=== PATIENT | male | born 1975 | race Caucasian/White ===

== ENCOUNTER 2017-10-13 18:56 | Emergency (ER) | payer OTHER ==
[2017-10-13 19:35] LABS: KETONE, URINE AUTO RFX TRACE mg/dL (NEGATIVE); MUCUS, URINE RFX SMALL (NEGATIVE); NITRITE, URINE AUTO RFX NEGATIVE (NEGATIVE); RBC, URINE AUTO RFX TNTC /HPF (0-3); SPECIFIC GRAVITY UR AUTO RFX 1.017 (1.002-1.035); SQUAM EPITHELIAL CELL UR AURFX 0 /HPF (0-6)
[2017-10-13 20:26] LABS: LEUKOCYTE ESTERASE UR AUTO RFX TRACE (NEGATIVE); WBC, URINE AUTO RFX 52 /HPF (0-3)
[2017-10-13] MEDS: MORPHINE 4 MG/ML 1ML SYRINGE IV (21:37)
[2017-10-13] MEDS: ONDANSETRON 4MG/2ML VIAL (J2405) IV (21:37)
[2017-10-13 22:04] LABS: ANION GAP 6 MEQ/L (8-16); BLOOD UREA NITROGEN 20 MG/DL (7-18); CALCIUM LEVEL 9.1 MG/DL (8.5-10.1); CARBON DIOXIDE LEVEL 30 MEQ/L (21-32); CHLORIDE LEVEL 100 MEQ/L (98-107); CREATININE FOR GFR 0.87 MG/DL (0.70-1.30); GLOMERULAR FILTRATION RATE > 60.0 (>60); GLUCOSE, FASTING 305 MG/DL (70-105); POTASSIUM SERUM 3.8 MEQ/L (3.5-5.1); SODIUM LEVEL 136 MEQ/L (136-145)
[2017-10-13 22:09] LABS: BASO % 0.4 % (0.0-1.0); EOS # 0.1 10^3/uL (0.0-0.50); EOS % 0.8 % (0.0-3.0); HEMATOCRIT 45.6 % (42.0-52.0); HEMOGLOBIN 16.9 g/dl (14.0-18.0); IMMATURE GRANULOCYTE % 0.4 % (0-0); LYMPH # 2.6 10^3/uL (1.5-4.5); LYMPH % 24.3 % (24.0-44.0); MEAN CORPUSCULAR HEMOGLOBIN 30.6 pg (27.0-33.0); MEAN CORPUSCULAR VOLUME 82.5 fl (80.0-96.0); MONO # 0.7 10^3/uL (0.0-0.8); MONO % 6.2 % (0.0-5.0); NEUTROPHILS # 7.3 10^3/uL (1.8-7.7); NEUTROPHILS % 67.9 % (36.0-66.0); PLATELET COUNT, AUTOMATED 215 10^3/uL (150-450); RED BLOOD COUNT 5.53 10^6/uL (4.30-6.10); RED CELL DISTRIBUTION WIDTH 11.9 % (11.5-14.5); WHITE BLOOD COUNT 10.7 10^3/uL (4.0-10.0)
[2017-10-13 22:11] LABS: MEAN CORPUSCULAR HGB CONC 37.1 g/dl (32.0-36.5)
[2017-10-13] MEDS: TAMSULOSIN 0.4 MG CAP PO (23:35)
[2017-10-13] MEDS: CIPROFLOXACIN 500 MG TAB PO (23:35)
[2017-10-13] MEDS: NORCO 5/325MG TABLET (BULK FOR ED) PO (23:35)
== END 2017-10-13 23:42 | disposition home or self-care (01) ==
LOC: M ED 18:56
DX: N20.1 Calculus of ureter (principal); N30.91 Cystitis, unspecified with hematuria; K52.9 Noninfective gastroenteritis and colitis, unspecified; K44.9 Diaphragmatic hernia without obstruction or gangrene; N28.9 Disorder of kidney and ureter, unspecified; E11.9 Type 2 diabetes mellitus without complications; I10 Essential (primary) hypertension; E78.00 Pure hypercholesterolemia, unspecified; F41.9 Anxiety disorder, unspecified; Z79.899 Other long term (current) drug therapy; Z79.82 Long term (current) use of aspirin; Z79.4 Long term (current) use of insulin; Z87.891 Personal history of nicotine dependence
CPT/HCPCS: J2405

== ENCOUNTER 2017-10-20 22:51 | Emergency (ER) | payer OTHER ==
[2017-10-20 23:38] LABS: BASO # 0.1 10^3/uL (0.0-0.2); BASO % 0.3 % (0.0-1.0); EOS % 0.2 % (0.0-3.0); HEMATOCRIT 43.3 % (42.0-52.0); HEMOGLOBIN 15.9 g/dl (14.0-18.0); IMMATURE GRANULOCYTE % 0.2 % (0-0); LYMPH # 1.3 10^3/uL (1.5-4.5); MEAN CORPUSCULAR HEMOGLOBIN 30.6 pg (27.0-33.0); MEAN CORPUSCULAR VOLUME 83.3 fl (80.0-96.0); MONO % 5.8 % (0.0-5.0); NEUTROPHILS # 13.9 10^3/uL (1.8-7.7); NEUTROPHILS % 85.5 % (36.0-66.0); PLATELET COUNT, AUTOMATED 204 10^3/uL (150-450); RED CELL DISTRIBUTION WIDTH 11.9 % (11.5-14.5); WHITE BLOOD COUNT 16.3 10^3/uL (4.0-10.0)
[2017-10-20 23:42] LABS: MEAN CORPUSCULAR HGB CONC 36.7 g/dl (32.0-36.5)
[2017-10-20] MEDS: NS 1,000 ML IV (23:45)
[2017-10-20] MEDS: KETOROLAC 30 MG/ML VIAL (J1885) IV (23:45)
[2017-10-20] MEDS: MORPHINE 2 MG/ML 1ML SYRINGE IV (23:45)
[2017-10-20] MEDS: ONDANSETRON 4MG/2ML VIAL (J2405) IV (23:45)
[2017-10-20 23:53] LABS: KETONE, URINE AUTO RFX 1+ mg/dL (NEGATIVE); LEUKOCYTE ESTERASE UR AUTO RFX NEGATIVE (NEGATIVE); MUCUS, URINE RFX SMALL (NEGATIVE); NITRITE, URINE AUTO RFX NEGATIVE (NEGATIVE); RBC, URINE AUTO RFX TNTC /HPF (0-3); SPECIFIC GRAVITY UR AUTO RFX 1.024 (1.002-1.035); SQUAM EPITHELIAL CELL UR AURFX 0 /HPF (0-6); WBC, URINE AUTO RFX 8 /HPF (0-3)
[2017-10-21 00:05] LABS: ALBUMIN 4.2 GM/DL (3.2-5.2); ALBUMIN/GLOBULIN RATIO 1.35 (1.00-1.93); ALKALINE PHOSPHATASE 83 U/L (45-117); ALT/SGPT 37 U/L (12-78); ANION GAP 9 MEQ/L (8-16); AST/SGOT 18 U/L (7-37); BILIRUBIN,DIRECT 0.3 MG/DL (0.0-0.2); BILIRUBIN,TOTAL 1.2 MG/DL (0.2-1.0); BLOOD UREA NITROGEN 21 MG/DL (7-18); CALCIUM LEVEL 9.1 MG/DL (8.5-10.1); CARBON DIOXIDE LEVEL 30 MEQ/L (21-32); CHLORIDE LEVEL 100 MEQ/L (98-107); CREATININE FOR GFR 1.12 MG/DL (0.70-1.30); GLOMERULAR FILTRATION RATE > 60.0 (>60); GLUCOSE, FASTING 231 MG/DL (70-105); LIPASE 91 U/L (73-393); POTASSIUM SERUM 3.6 MEQ/L (3.5-5.1); SODIUM LEVEL 139 MEQ/L (136-145); TOTAL PROTEIN 7.3 GM/DL (6.4-8.2)
[2017-10-21] MEDS: MORPHINE 2 MG/ML 1ML SYRINGE IV (01:39)
[2017-10-21] MEDS: NORCO 5/325MG TABLET (BULK FOR ED) PO (01:55)
== END 2017-10-21 02:03 | disposition home or self-care (01) ==
LOC: M ED 22:51
DX: N20.1 Calculus of ureter (principal); I51.9 Heart disease, unspecified; E11.9 Type 2 diabetes mellitus without complications; I10 Essential (primary) hypertension; N28.1 Cyst of kidney, acquired; Z79.82 Long term (current) use of aspirin; Z79.4 Long term (current) use of insulin; Z79.899 Other long term (current) drug therapy
CPT/HCPCS: J2405

== ENCOUNTER → 2017-10-25 | Outpatient (CLI) | payer OTHER ==
[~2017-10-25] MED LIST: ISOVUE-370 76% 100ML VIAL (Q9967) As Ordered
== END ==
LOC: M RAD 13:41
DX: N28.9 Disorder of kidney and ureter, unspecified (principal); N20.0 Calculus of kidney
CPT/HCPCS: Q9967

== ENCOUNTER → 2018-04-10 | Outpatient (CLI) | payer OTHER | LOC: M RAD 10:15 | DX: D41.12 Neoplasm of uncertain behavior of left renal pelvis (principal) | CPT/HCPCS: Q9967 ==

== ENCOUNTER → 2019-04-18 | Outpatient (CLI) | payer OTHER ==
[~2019-04-18] MED LIST changes: +AMLO5TAB6; +ASPI81TA85 PO; +ATOR40TA75; +CIPR-249 PO; +FLOM0.4C39 PO; +HYDR-3715 PO; +HYDR25TAB; +INSULANT SC; -ISOVUE-370 76% 100ML VIAL (Q9967) As Ordered; +ISOVUE-370 76% 100ML VIAL (Q9967) As Ordered ONE; +LOSA50TA88; +METF500T4; +VENL75TA2; +ZOFR4TAB14 PO
--- NOTE | 2019-04-18 15:09 | REP ---
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 Comparison CT study April 10, 2018. Previous studies have described a 2.5 cm complex lesion in the lower pole of the left kidney containing calcification. This was most conspicuous on precontrast and delayed postcontrast phases, neither of which was acquired with today's study. CT contrast dose: 100 ml of intravenous Isovue 370 is administered. Findings: Digital preliminary lawn sprinkler servicer radiograph is unremarkable. There is an accessory splenule. No focal hepatic or splenic lesion is seen. The kidneys enhance symmetrically. There is a small area of focal cortical scarring visible at the lower pole of the left kidney with some subjacent mild linear calcification. No mass lesion is evident on this early equilibrium phase post contrast acquisition. There is an intrarenal calculus at midpole level measuring 3 mm in diameter. No other focal renal lesion is seen. No hydronephrosis is noted. No vascular abnormality is observed. Normal appendix is seen. No retroperitoneal mass or adenopathy is seen. Small and large bowel loops are unremarkable. Impression: Focal cortical scarring with some calcification in the inferior pole of the left kidney. This single phase postcontrast study does not show the previously described lower pole left renal lesion to good advantage. There is certainly no evidence of an enlarging renal mass. There is an intrarenal calculus in the left kidney without hydronephrosis. Electronically Signed by Michele Gutierrez MD 04/18/2019 04:53 P
== END ==
LOC: M RAD 12:56
PROVIDERS: ATTEND Internal Medicine Nephrology
DX: D41.02 Neoplasm of uncertain behavior of left kidney (principal)
CPT/HCPCS: 74160; Q9967

== ENCOUNTER → 2022-09-04 | Outpatient (REF) | payer OTHER ==
[~2022-09-04] MED LIST changes: +AMLO1TAB24; -AMLO5TAB6; -ASPI81TA85 PO; +ASPI81TA86 PO; +HYDR-3490; -HYDR25TAB; -ISOVUE-370 76% 100ML VIAL (Q9967) As Ordered ONE; +LOSA50TA28; -LOSA50TA88; +METF-838; -METF500T4
== END ==
LOC: M LAB REF 12:43
PROVIDERS: ATTEND Physician Assistant
DX: J02.9 Acute pharyngitis, unspecified (principal)

== ENCOUNTER → 2023-06-12 | Outpatient (CLI) | payer OTHER | LOC: M RAD 12:03 | PROVIDERS: ATTEND Nurse Practitioner Adult Health | DX: N20.2 Calculus of kidney with calculus of ureter (principal); N13.30 Unspecified hydronephrosis; K40.90 Unilateral inguinal hernia, without obstruction or gangrene, not specified as recurrent ==